=== PATIENT | male | born 1945 | race Caucasian/White ===

== ENCOUNTER 2016-09-28 20:31 | Inpatient (IN) | payer MEDICARE ==
[~2016-09-28] VITALS: Ht 180.3 cm; Wt 112.5 kg
[2016-09-28] MEDS ORDERED: DEXAMETHASONE 4 MG TABLET PO ONE (21:30)
[2016-09-28] MEDS ORDERED: DEXAMETHASONE 4 MG TABLET ONE (21:47)
[2016-09-28 22:20] LABS: ASPARTATE AMINO TRANSFERASE 30 U/L (15-37); BLOOD UREA NITROGEN 27 mg/dL (7-18)
[2016-09-28] MEDS ORDERED: SODIUM CHLORIDE 0.9% 1,000 ML IV ONE ×2 (22:20→22:42)
[2016-09-28] MEDS ORDERED: SODIUM CHLORIDE FLUSH 10ML SYR IVF ONE (22:30)
[2016-09-28] MEDS ORDERED: CEFTRIAXONE PMX 1GM/50ML 50 ML IVPB ONE (22:30)
[2016-09-28] MEDS ORDERED: AZITHROMYCIN 500 MG in SODIUM CHLORIDE 0.9% 250 ML IV ONE (22:30)
[2016-09-28] MEDS ORDERED: CEFTRIAXONE PMX 1GM/50ML 50 ML ONE (22:40)
[2016-09-28] MEDS ORDERED: INSU300I SQ (22:53)
[2016-09-28] MEDS ORDERED: GLIM4TAB2 PO (22:56)
[2016-09-28] MEDS ORDERED: FENO145T13 PO (22:56)
[2016-09-28] MEDS ORDERED: METF500T4 PO (22:56)
[2016-09-28] MEDS ORDERED: LOSA50TA6 PO (22:56)
[2016-09-28] MEDS ORDERED: VALS1TAB28 PO (22:56)
[2016-09-28] MEDS ORDERED: ZOLPIDEM 5MG TABLET PO PRN (23:00)
[2016-09-28] MEDS ORDERED: ACETAMINOPHEN 500 MG TABLET PO PRN (23:00)
[2016-09-28] MEDS ORDERED: ONDANSETRON 2MG/ML, 2ML IVPush PRN (23:00)
[2016-09-28] MEDS ORDERED: SODIUM CHLORIDE FLUSH 10ML SYR IVF PRN (23:00)
[2016-09-29] MEDS ORDERED: SODIUM CHLORIDE 0.9% 1,000 ML IV SCH
[2016-09-29 00:25] VITALS: BP 148/74
[2016-09-29] MEDS: INSULIN ASPART 100 UNITS/ML, PEN SQ-INSULIN SCH ×5 (01:03→20:19)
[2016-09-29 05:41] LABS: BLOOD UREA NITROGEN 28 mg/dL (7-18)
[2016-09-29 06:31] VITALS: BP 136/75
[2016-09-29] MEDS ORDERED: AZITHROMYCIN 500 MG in SODIUM CHLORIDE 0.9% 250 ML IV ONE (08:00)
[2016-09-29] MEDS ORDERED: CEFTRIAXONE PMX 1GM/50ML 50 ML IV ONE (08:00)
[2016-09-29] MEDS ORDERED: ACETAMINOPHEN 325 MG TABLET PO PRN (11:00)
[2016-09-29] MEDS ORDERED: GUAIFENESIN/DM 200-20MG, 10ML UDC PO PRN (11:00)
[2016-09-29] MEDS: HEPARIN 5,000 UNITS/ML, 1ML SQ SCH ×2 (11:39→20:18)
[2016-09-29] MEDS: INSULIN DETEMIR 100 UNITS/ML, PEN SQ-INSULIN SCH (12:04)
[2016-09-29 12:15] VITALS: BP 131/72
[2016-09-29] MEDS ORDERED: INSULIN LISPRO MC SCH (16:00)
[2016-09-29] MEDS: GLIMEPIRIDE 4 MG TABLET PO SCH (18:21)
[2016-09-29 19:08] VITALS: BP 158/75
[2016-09-30 02:50] VITALS: BP 151/82
[2016-09-30 05:58] LABS: BLOOD UREA NITROGEN 26 mg/dL (7-18)
[2016-09-30] MEDS: INSULIN ASPART 100 UNITS/ML, PEN SQ-INSULIN SCH ×2 (07:00→11:53)
[2016-09-30 07:01] VITALS: BP 148/76
[2016-09-30] MEDS: GLIMEPIRIDE 4 MG TABLET PO SCH (07:48)
[2016-09-30] MEDS: HEPARIN 5,000 UNITS/ML, 1ML SQ SCH (07:49)
[2016-09-30] MEDS ORDERED: LOSARTAN 50MG TABLET PO SCH (09:00)
[2016-09-30] MEDS: INSULIN DETEMIR 100 UNITS/ML, PEN SQ-INSULIN SCH (09:28)
[2016-09-30] MEDS ORDERED: CEFD300C37 PO (09:43)
[2016-09-30] MEDS ORDERED: AZIT500T77 PO (09:44)
[2016-09-30] MEDS ORDERED: CEFTRIAXONE PMX 1GM/50ML 50 ML IV ONE ×2 (10:00)
[2016-09-30] MEDS ORDERED: AZITHROMYCIN 500 MG in SODIUM CHLORIDE 0.9% 250 ML IV ONE ×2 (10:00→11:00)
== END 2016-09-30 13:49 | disposition home or self-care (01) | DRG 637 ==
LOC: ED 23:43 → EDIP 23:50 → 3NE 23:55
PROVIDERS: ADMIT Internal Medicine; ATTEND Internal Medicine
DX: E11.65 Type 2 diabetes mellitus with hyperglycemia (principal); J15.9 Unspecified bacterial pneumonia; E87.1 Hypo-osmolality and hyponatremia; E78.5 Hyperlipidemia, unspecified; I10 Essential (primary) hypertension; Z80.43 Family history of malignant neoplasm of testis; Z82.49 Family history of ischemic heart disease and other diseases of the circulatory system; Z87.891 Personal history of nicotine dependence; Z83.3 Family history of diabetes mellitus; Z98.41 Cataract extraction status, right eye; Z98.42 Cataract extraction status, left eye
CPT/HCPCS: 36415; 71010; 80048; 80053; 82962; 83605; 84145; 85025; 87040; 87081; 87880; 93005; 96365; 96368; J0456; J0696; J1644; J1815; J7030; J7050

== ENCOUNTER → 2016-10-15 | Outpatient (CLI) | payer MEDICARE ==
[~2016-10-15] MED LIST: AZIT500T77 PO; CEFD300C37 PO; FENO145T13 PO; GLIM4TAB2 PO; INSU300I SQ; LOSA50TA6 PO; METF500T4 PO; VALS1TAB28 PO
== END | disposition home or self-care (01) ==
LOC: RAD 13:40
PROVIDERS: ATTEND Internal Medicine
DX: R91.8 Other nonspecific abnormal finding of lung field (principal); E11.9 Type 2 diabetes mellitus without complications
CPT/HCPCS: 71020

== ENCOUNTER 2017-08-31 11:15 | Inpatient (IN) | payer MEDICARE ==
[~2017-08-31] VITALS: Ht 180.3 cm; Wt 110.1 kg
[~2017-08-31 11:15] MED LIST changes: +ASPI-515 PO; +AZIT500T5 PO; -AZIT500T77 PO; +ROSU5TAB PO; +TERA5CAP3 PO
[2017-08-31] MEDS ORDERED: LIDOCAINE 2% VISCOUS 15 ML UDC MM ONE (12:30)
[2017-08-31 12:38] LABS: BASOPHILS # (AUTO) 0.06 x10^3/uL (0-0.1); BASOPHILS % (AUTO) 1 % (0-1); EOSINOPHILS # (AUTO) 0.02 x10^3/uL (0-0.4); EOSINOPHILS % (AUTO) 0 % (1-7); LYMPHOCYTES # (AUTO) 1.47 x10^3/uL (1-3.4); LYMPHOCYTES % (AUTO) 26 % (22-44); MD NO; MEAN CORPUSCULAR VOLUME 91.4 fL (81-97); MEAN PLATELET VOLUME 8.5 fL (7.4-10.4); MONOCYTES # (AUTO) 0.99 x10^3/uL (0.2-0.8); MONOCYTES % (AUTO) 18 % (2-9); NEUTROPHILS # (AUTO) 3.07 x10^3/uL (1.8-6.8); NEUTROPHILS % (AUTO) 55 % (42-75); PLATELET COUNT 239 x10^3/uL (130-400); RED BLOOD COUNT 4.76 x10^6/uL (4.38-5.82); RED CELL DISTRIBUTION WIDTH 13.5 % (9.4-14.8)
[2017-08-31 12:47] LABS: ALANINE AMINOTRANSFERASE 105 U/L (12-78); ALBUMIN 2.9 g/dL (3.4-5.0); ANION GAP 8 mmol/L (5-15); CALCIUM 8.8 mg/dL (8.5-10.1); CHLORIDE 102 mmol/L (98-107); CREATININE 1.65 mg/dL (0.7-1.3)
[2017-08-31 12:50] LABS: ALKALINE PHOSPHATASE 48 U/L (45-117); BILIRUBIN,TOTAL 0.7 mg/dL (0.2-1.0); TOTAL PROTEIN 8.1 g/dL (6.4-8.2)
[2017-08-31] MEDS ORDERED: ONDANSETRON ODT 4 MG PO ONE (14:00)
[2017-08-31] MEDS ORDERED: MORPHINE SULFATE 4 MG/ML, 1ML IVPush PRN ×2 (14:00→15:30)
[2017-08-31] MEDS ORDERED: SODIUM CHLORIDE FLUSH 10ML SYR IVF ONE (14:00)
[2017-08-31] MEDS ORDERED: ONDANSETRON ODT 4 MG ONE (14:25)
[2017-08-31] MEDS ORDERED: MORPHINE SULFATE 4 MG/ML, 1ML ONE (14:25)
[2017-08-31 14:30] VITALS: BP 159/79
[2017-08-31] MEDS ORDERED: ACETAMINOPHEN 325 MG TABLET PO PRN (15:30)
[2017-08-31] MEDS ORDERED: ENOXAPARIN 30 MG/0.3 ML SQ SCH (15:30)
[2017-08-31] MEDS ORDERED: DOCUSATE 100 MG CAPSULE PO PRN (15:30)
[2017-08-31] MEDS ORDERED: ONDANSETRON 2MG/ML, 2ML IVPush PRN (15:30)
[2017-08-31] MEDS ORDERED: AMPICILLIN/SULBACTAM 3 GM in SODIUM CHLORIDE 0.9% 100 ML IV ONE (15:30)
[2017-08-31] MEDS: INSULIN LISPRO 100 UNITS/ML, PEN SQ-INSULIN SCH ×2 (16:00→21:13)
[2017-08-31] MEDS: SODIUM CHLORIDE 0.9% 1,000 ML IV SCH (17:13)
[2017-08-31] MEDS: ENOXAPARIN 40 MG/0.4 ML SQ SCH (17:20)
[2017-08-31] MEDS: AMPICILLIN/SULBACTAM 3 GM in SODIUM CHLORIDE 0.9% 100 ML IV SCH (18:05)
[2017-08-31 19:21] VITALS: BP 164/82
[2017-08-31] MEDS: TEMAZEPAM 15 MG CAPSULE PO PRN (21:12)
[2017-08-31] MEDS: INSULIN GLARGINE 100 UNITS/ML, PEN SQ-INSULIN SCH (21:13)
[2017-09-01] MEDS: SODIUM CHLORIDE 0.9% 1,000 ML IV SCH ×4 (00:07→22:43)
[2017-09-01 02:02] VITALS: BP 165/82
[2017-09-01] MEDS: AMPICILLIN/SULBACTAM 3 GM in SODIUM CHLORIDE 0.9% 100 ML IV SCH ×2 (04:49→16:43)
[2017-09-01] MEDS ORDERED: AMPICILLIN/SULBACTAM 3 GM in SODIUM CHLORIDE 0.9% 100 ML IV SCH (06:00)
[2017-09-01 06:59] LABS: BASOPHILS # (AUTO) 0.03 x10^3/uL (0-0.1); BASOPHILS % (AUTO) 1 % (0-1); EOSINOPHILS # (AUTO) 0.04 x10^3/uL (0-0.4); EOSINOPHILS % (AUTO) 1 % (1-7); LYMPHOCYTES # (AUTO) 1.67 x10^3/uL (1-3.4); LYMPHOCYTES % (AUTO) 32 % (22-44); MD NO; MEAN CORPUSCULAR HEMOGLOBIN 30.1 pg (27.5-34.5); MEAN CORPUSCULAR HGB CONC 33.3 g/dL (33.2-36.2); MEAN CORPUSCULAR VOLUME 90.4 fL (81-97); MEAN PLATELET VOLUME 8.1 fL (7.4-10.4); MONOCYTES # (AUTO) 0.86 x10^3/uL (0.2-0.8); MONOCYTES % (AUTO) 16 % (2-9); NEUTROPHILS # (AUTO) 2.65 x10^3/uL (1.8-6.8); NEUTROPHILS % (AUTO) 51 % (42-75); PLATELET COUNT 260 x10^3/uL (130-400); RED BLOOD COUNT 4.56 x10^6/uL (4.38-5.82); RED CELL DISTRIBUTION WIDTH 13.4 % (9.4-14.8)
[2017-09-01] MEDS: INSULIN LISPRO 100 UNITS/ML, PEN SQ-INSULIN SCH ×4 (07:00→19:50)
[2017-09-01 07:04] LABS: ALANINE AMINOTRANSFERASE 82 U/L (12-78); ALBUMIN 2.6 g/dL (3.4-5.0); ANION GAP 7 mmol/L (5-15); CALCIUM 8.2 mg/dL (8.5-10.1); CHLORIDE 103 mmol/L (98-107)
[2017-09-01 07:07] LABS: ALKALINE PHOSPHATASE 43 U/L (45-117); BILIRUBIN,TOTAL 0.4 mg/dL (0.2-1.0); CREATININE 1.47 mg/dL (0.7-1.3); TOTAL PROTEIN 7.3 g/dL (6.4-8.2)
[2017-09-01 07:19] VITALS: BP 151/84
[2017-09-01] MEDS ORDERED: HYDROcodone/APAP 7.5-325MG/15ML UDC PO PRN (08:30)
[2017-09-01] MEDS ORDERED: maalox/diphenh/lido/sucralfate 5 ML PO PRN (08:30)
[2017-09-01] MEDS: maalox/diphenh/lido/sucralfate 5 ML PO PRN ×2 (10:05→21:24)
[2017-09-01] MEDS: CHLORHEXIDINE 15 ML BOTTLE MM SCH ×2 (10:05→19:49)
[2017-09-01 11:10] VITALS: BP 166/93
[2017-09-01 14:00] VITALS: BP 177/80
[2017-09-01] MEDS: ENOXAPARIN 40 MG/0.4 ML SQ SCH (16:30)
[2017-09-01 19:26] VITALS: BP 184/92
[2017-09-01] MEDS: INSULIN GLARGINE 100 UNITS/ML, PEN SQ-INSULIN SCH (19:50)
[2017-09-01] MEDS: TEMAZEPAM 15 MG CAPSULE PO PRN (21:24)
[2017-09-02 01:09] VITALS: BP 178/89
[2017-09-02] MEDS: SODIUM CHLORIDE 0.9% 1,000 ML IV SCH (05:16)
[2017-09-02] MEDS: AMPICILLIN/SULBACTAM 3 GM in SODIUM CHLORIDE 0.9% 100 ML IV SCH (05:16)
[2017-09-02] MEDS: INSULIN LISPRO 100 UNITS/ML, PEN SQ-INSULIN SCH ×2 (07:00→12:02)
[2017-09-02 07:35] VITALS: BP 207/110
[2017-09-02] MEDS: CHLORHEXIDINE 15 ML BOTTLE MM SCH ×2 (07:44→12:26)
[2017-09-02 08:13] VITALS: BP 176/84
[2017-09-02] MEDS ORDERED: AMOXICILLIN/CLAV 875-125MG TABLET PO SCH (09:00)
[2017-09-02] MEDS ORDERED: GLIMEPIRIDE 4 MG TABLET PO SCH (09:00)
[2017-09-02] MEDS ORDERED: ASPIRIN 81 MG TABLET EC PO SCH (09:00)
[2017-09-02] MEDS ORDERED: LOSARTAN 50MG TABLET PO SCH (09:00)
[2017-09-02 09:20] VITALS: BP 154/71
[2017-09-02] MEDS ORDERED: maalox/diphenh/lido/sucralfate PO (12:26)
[2017-09-02] MEDS ORDERED: CHLO473M MM (12:26)
[2017-09-02] MEDS: maalox/diphenh/lido/sucralfate 5 ML PO PRN (12:26)
[2017-09-02] MEDS ORDERED: AMOX1TAB12 PO (12:26)
[2017-09-02 13:05] VITALS: BP 188/81
[2017-09-02] MEDS ORDERED: TERAZOSIN 5MG CAPSULE PO SCH (21:00)
== END 2017-09-02 14:00 | disposition home or self-care (01) | DRG 157 ==
LOC: ED 14:06 → EDIP 14:07 → ED 14:44 → 3NE 15:40 → DCLOUNGE 09-02 13:20
PROVIDERS: ADMIT Internal Medicine; ATTEND Internal Medicine
DX: K12.1 Other forms of stomatitis (principal); E43 Unspecified severe protein-calorie malnutrition; N17.9 Acute kidney failure, unspecified; E11.9 Type 2 diabetes mellitus without complications; E86.0 Dehydration; J06.9 Acute upper respiratory infection, unspecified; Z82.49 Family history of ischemic heart disease and other diseases of the circulatory system; I10 Essential (primary) hypertension; E78.5 Hyperlipidemia, unspecified; K21.9 Gastro-esophageal reflux disease without esophagitis; G51.0 Bell's palsy; Z79.899 Other long term (current) drug therapy; Z80.43 Family history of malignant neoplasm of testis; Z83.3 Family history of diabetes mellitus; Z87.891 Personal history of nicotine dependence; Z98.41 Cataract extraction status, right eye; Z98.42 Cataract extraction status, left eye; Z79.82 Long term (current) use of aspirin; K03.2 Erosion of teeth
CPT/HCPCS: 36415; 70100; 70486; 80053; 82962; 85025; 96374; J0295; J1650; Q0162; J1815; J7030